=== PATIENT | male | born 1975 | race Caucasian/White ===

== ENCOUNTER 2023-04-01 00:15 | Day surgery (SDC) | payer OTHER ==
[2023-04-01 09:00] VITALS: BP 158/99
[2023-04-01 10:10] VITALS: BP 157/97
[2023-04-01 10:25] VITALS: BP 155/96
[2023-04-01] MEDS ORDERED: FLUO10 (10:31)
[2023-04-01] MEDS ORDERED: CETI5 (10:31)
[2023-04-01] MEDS ORDERED: TRAM50 (10:31)
[2023-04-01] MEDS ORDERED: LOSA25 (10:31)
[2023-04-01 10:40] VITALS: BP 135/78
[2023-04-01 10:54] VITALS: BP 138/84
[2023-04-01 11:10] VITALS: BP 150/88
== END 2023-04-01 11:43 | disposition home or self-care (01) ==
LOC: ATC 00:15
DX: L40.0 Psoriasis vulgaris (principal)
CPT/HCPCS: J7040; Q5103

== ENCOUNTER 2023-04-22 02:14 | Day surgery (SDC) | payer OTHER ==
[~2023-04-22 02:14] MED LIST: CETI5; FLUO10; LOSA25; TRAM50
[2023-04-22 09:19] VITALS: BP 148/78
== END 2023-04-22 12:25 | disposition home or self-care (01) ==
LOC: ATC 02:14
DX: L40.0 Psoriasis vulgaris (principal); L60.8 Other nail disorders; L57.8 Other skin changes due to chronic exposure to nonionizing radiation; J45.909 Unspecified asthma, uncomplicated; G47.33 Obstructive sleep apnea (adult) (pediatric); E11.9 Type 2 diabetes mellitus without complications; Z87.891 Personal history of nicotine dependence; Z88.1 Allergy status to other antibiotic agents; Z88.0 Allergy status to penicillin; Z79.899 Other long term (current) drug therapy
CPT/HCPCS: 96413; 96415; J7040; Q5103

== ENCOUNTER 2023-05-13 01:21 | Day surgery (SDC) | payer OTHER ==
[2023-05-13 09:03] VITALS: BP 151/84
[2023-05-13 11:16] VITALS: BP 157/92
== END 2023-05-13 11:52 | disposition home or self-care (01) ==
LOC: ATC 01:21
DX: L40.0 Psoriasis vulgaris (principal); E11.9 Type 2 diabetes mellitus without complications; J45.20 Mild intermittent asthma, uncomplicated; G47.33 Obstructive sleep apnea (adult) (pediatric); Z88.0 Allergy status to penicillin
CPT/HCPCS: 96413; 96415; J7040; Q5103

== ENCOUNTER 2023-07-08 03:10 | Day surgery (SDC) | payer OTHER ==
[2023-07-08 09:25] VITALS: BP 150/84
[2023-07-08] MEDS ORDERED: INFLECTRA100 MG IV (10:28)
== END 2023-07-08 13:11 | disposition home or self-care (01) ==
LOC: ATC 03:10
DX: L40.0 Psoriasis vulgaris (principal); L60.8 Other nail disorders; L57.8 Other skin changes due to chronic exposure to nonionizing radiation; E11.9 Type 2 diabetes mellitus without complications; J45.20 Mild intermittent asthma, uncomplicated; G47.33 Obstructive sleep apnea (adult) (pediatric); Z88.0 Allergy status to penicillin; Z88.1 Allergy status to other antibiotic agents; Z79.899 Other long term (current) drug therapy
CPT/HCPCS: 96413; 96415; J7040; Q5103

== ENCOUNTER 2023-09-02 00:30 | Day surgery (SDC) | payer OTHER ==
[~2023-09-02] VITALS: Wt 237.5 kg
[~2023-09-02 00:30] MED LIST changes: +INFLECTRA100 MG IV
[2023-09-02 09:08] VITALS: BP 138/87
== END 2023-09-02 12:16 | disposition home or self-care (01) ==
LOC: ATC 00:30
DX: L40.0 Psoriasis vulgaris (principal); E11.9 Type 2 diabetes mellitus without complications; J45.909 Unspecified asthma, uncomplicated; F41.9 Anxiety disorder, unspecified
CPT/HCPCS: 96413; 96415; J7040; Q5103

== ENCOUNTER 2023-10-28 00:31 | Day surgery (SDC) | payer OTHER ==
[2023-10-28 09:15] VITALS: BP 145/93
[2023-10-28] MEDS ORDERED: NS IV SCH (09:35)
[2023-10-28] MEDS ORDERED: INFLIXIMAB DYYB IV SCH (09:35)
== END 2023-10-28 12:17 | disposition home or self-care (01) ==
LOC: ATC 00:31
DX: L40.0 Psoriasis vulgaris (principal); Z87.891 Personal history of nicotine dependence; E11.9 Type 2 diabetes mellitus without complications; F32.A Depression, unspecified; F41.9 Anxiety disorder, unspecified; Z88.0 Allergy status to penicillin; Z88.1 Allergy status to other antibiotic agents
CPT/HCPCS: 96413; 96415; J7040; Q5103

== ENCOUNTER 2024-04-14 01:45 | Day surgery (SDC) | payer OTHER ==
[~2024-04-14] VITALS: Wt 251.0 kg
[2024-04-14] MEDS ORDERED: TRAZ50 PO (09:16)
[2024-04-14] MEDS ORDERED: VRAYLAR1.5 MG PO (09:17)
[2024-04-14] MEDS ORDERED: VITAMIN D325 MC3 PO (09:17)
[2024-04-14 09:19] VITALS: BP 142/83
[2024-04-14] MEDS ORDERED: NS IV SCH (09:30)
[2024-04-14] MEDS ORDERED: INFLIXIMAB DYYB IV SCH (09:30)
== END 2024-04-14 12:30 | disposition home or self-care (01) ==
LOC: ATC 01:45
DX: L40.0 Psoriasis vulgaris (principal); Z87.891 Personal history of nicotine dependence; Z88.0 Allergy status to penicillin; Z88.1 Allergy status to other antibiotic agents
CPT/HCPCS: 96413; 96415; J7040; Q5103

== ENCOUNTER 2024-09-30 18:32 | Emergency (ER) | payer OTHER ==
[~2024-09-30] VITALS: Ht 198.1 cm; Wt 264.9 kg
[~2024-09-30 18:32] MED LIST changes: +TRAZ50 PO; +VITAMIN D325 MC3 PO; +VRAYLAR1.5 MG PO
[2024-09-30 18:51] VITALS: BP 197/119
[2024-09-30] MEDS ORDERED: Diphth,Pertuss(Acell),Tet Vac 0.5 ML VIAL IM ONE (20:05)
== END 2024-09-30 21:47 | disposition home or self-care (01) ==
LOC: ER 18:32
DX: S61.211A Laceration without foreign body of left index finger without damage to nail, initial encounter (principal); W26.0XXA Contact with knife, initial encounter; Z88.0 Allergy status to penicillin; Z79.899 Other long term (current) drug therapy; Z23 Encounter for immunization
CPT/HCPCS: 12001; 90471; 90715; 99282-25

== ENCOUNTER 2025-03-25 08:03 | Emergency (ER) | payer OTHER ==
[~2025-03-25] VITALS: Ht 195.6 cm; Wt 240.4 kg
[2025-03-25 08:43] LABS: BASOPHILS ABSOLUTE AUTO 0.05 K/mm3 (0.00-0.23); BASOPHILS PERCENT AUTO 1 % (0-2); EOSINOPHILS ABSOLUTE AUTO 0.11 K/mm3 (0.00-0.68); EOSINOPHILS PERCENT AUTO 2 % (0-6); Hematocrit 39.5 % (37.0-53.0); Hemoglobin 12.6 g/dL (13.5-17.5); IMMATURE GRAN ABSOLUTE AUTO 0.01 K/mm3 (0.00-0.10); IMMATURE GRAN PERCENT AUTO 0 % (0-1); LYMPHOCYTES ABSOLUTE AUTO 1.47 K/mm3 (0.84-5.20); LYMPHOCYTES PERCENT AUTO 25 % (21-46); MONOCYTES ABSOLUTE AUTO 0.51 K/mm3 (0.16-1.47); MONOCYTES PERCENT AUTO 9 % (4-13); Mean Corpuscular HGB Conc 31.9 g/dL (31.5-36.5); Mean Corpuscular Volume 85 fL (80-100); NEUTROPHILS ABSOLUTE AUTO 3.78 K/mm3 (1.96-9.15); NEUTROPHILS PERCENT AUTO 64 % (41-73); NRBC ABSOLUTE 0.00 K/mm3 (0.00-0.02); NRBC Auto 0.0 /100 WBC (0.0-0.2); Platelet Count 202 K/mm3 (150-400); RDW Coefficient Variation 13.2 % (11.7-14.2); RDW Standard Deviation 41.0 fL (35.1-46.3)
[2025-03-25 09:02] LABS: Alanine Aminotransfer (ALT/SGP 38.0 U/L (12-78); Albumin, Blood 3.0 g/dL (3.4-5.0); Albumin/Globulin Ratio 0.7 (0.8-1.8); Anion Gap 6.0 mmol/L (3-11); Aspartate Aminotrans (AST/SGOT 25.0 U/L (12-37); Bilirubin, Total 0.4 mg/dL (0.1-1.0); Blood Urea Nitrogen 9.0 mg/dL (8-24); CO2, Blood 27.0 mmol/L (21-32); Calcium, Blood 9.2 mg/dL (8.5-10.1); Chloride, Blood 109.0 mmol/L (98-108); Creatinine, Blood 0.77 mg/dL (0.60-1.20); Globulin, Blood 4.5 g/dL (2.2-4.0); Glucose, Blood 122.0 mg/dL (70-99); Potassium, Blood 3.8 mmol/L (3.5-5.5); Sodium, Blood 138.0 mmol/L (136-145); Total Protein, Blood 7.5 g/dL (6.4-8.2)
[2025-03-25] MEDS ORDERED: AMIT50 PO (09:05)
[2025-03-25] MEDS ORDERED: albuterol sulfate HF (09:07)
[2025-03-25] MEDS ORDERED: SKYRIZI (09:07)
[2025-03-25] MEDS ORDERED: FeroSul 325 mg (65 m (09:08)
[2025-03-25] MEDS ORDERED: DULOXETINE HCL60 M1 PO (09:08)
[2025-03-25] MEDS ORDERED: TORS10 (09:09)
[2025-03-25 11:41] VITALS: BP 149/98
== END 2025-03-25 11:42 | disposition home or self-care (01) ==
LOC: ER 08:03
PROVIDERS: Student in an Organized Health Care Education/Training Program
DX: R07.2 Precordial pain (principal); R06.02 Shortness of breath; E66.01 Morbid (severe) obesity due to excess calories; J45.909 Unspecified asthma, uncomplicated; I10 Essential (primary) hypertension
CPT/HCPCS: 71046; 80053; 83690; 83880; 84484; 85025; 93005; 93010; 99285-25